=== PATIENT | male | born 1970 | race Two or more races ===

== ENCOUNTER 2021-11-21 14:02 | Emergency (ER) | payer MEDICAID ==
[~2021-11-21] VITALS: Ht 182.9 cm; Wt 79.4 kg
[2021-11-21 14:58] VITALS: BP 140/76
[2021-11-21] MEDS ORDERED: CHLO25CA22 PO (15:26)
--- NOTE | 2021-11-21 15:54 | NUR ---
Patient discharged to home in stable condition. Written and verbal after care instructions given. Patient verbalizes understanding of instruction.
== END 2021-11-21 15:54 | disposition home or self-care (01) ==
LOC: ER 14:08
DX: F10.139 Alcohol abuse with withdrawal, unspecified (principal); Z79.899 Other long term (current) drug therapy; Y90.9 Presence of alcohol in blood, level not specified